=== PATIENT | male | born 2000 | race African-American/Black ===

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

== ENCOUNTER 2019-11-07 14:30 | Emergency (ER) | payer OTHER, SELFPAY ==
[2019-11-07] MEDS ORDERED: Ondansetron ODT 4 MG TAB ONE (16:02)
== END 2019-11-07 16:46 | disposition home or self-care (01) ==
LOC: ERS 14:30
DX: R11.2 Nausea with vomiting, unspecified (principal); R19.7 Diarrhea, unspecified; F98.8 Other specified behavioral and emotional disorders with onset usually occurring in childhood and adolescence; F17.210 Nicotine dependence, cigarettes, uncomplicated
CPT/HCPCS: 96372; 99283; J0500; Q0162

== ENCOUNTER 2019-12-11 16:32 | Inpatient (IN) | payer OTHER, SELFPAY ==
[~2019-12-11 16:32] MED LIST: Iopamidol-370 76% 500 ML 1 ML ONE
[2019-12-11] MEDS ORDERED: Ondansetron PF 4 MG/2 ML Vial ONE (16:51)
[2019-12-11 17:20] LABS: #Basophils 0.1 thou/uL (0.0-0.2); #Lymphocytes 1.6 thou/uL (1.20-3.40); #Monocytes 2.1 thou/uL (0.11-0.59); #Neutrophils 15.3 thou/uL (1.40-6.50); %Basophils 0.3 % (0.0-1.0); %Eosinophils 0.1 % (0.0-10.0); %Lymphocytes 8.2 % (28.0-48.0); %Monocytes 10.9 % (0.0-4.0); %Neutrophils 80.5 % (31.0-61.0); Hemoglobin 17.4 g/dL (14.0-18.0); Mean Corpuscular HGB CONC 33.3 g/dL (32.0-36.0); Mean Platelet Volume 9.8 fL (7.4-10.4); Platelet Count 204 thou/uL (130-400); RBC Distribution Width 11.3 % (11.5-14.5)
[2019-12-11 17:47] LABS: ALT (SGPT) 15 U/L (8-55); AST (SGOT) 20 U/L (5-34); Albumin 5.3 g/dL (3.5-5.0); Alkaline Phosphatase 61 U/L (50-130); Anion Gap 17 mmol/L (10-20); BUN (Urea Nitrogen) 46 mg/dL (8.9-20.6); Bilirubin, Total 2.6 mg/dL (0.2-1.2); Calc. Creatinine Clearance 0 mL/min (70-130); Carbon Dioxide 29 mmol/L (22-29); Chloride 78 mmol/L (98-107); Estimated GFR-MDRD 49; Globulin 3.3 g/dL (2.4-3.5); Glucose 131 mg/dL (70-105); Lipase 110 U/L (8-78); Protein, Total 8.6 g/dL (6.0-8.3); Sodium 121 mmol/L (136-145)
[2019-12-11 17:51] LABS: Potassium 2.9 mmol/L (3.5-5.1)
[2019-12-11] MEDS ORDERED: Potassium Chloride 20 MEQ TAB ONE (17:52)
[2019-12-11 18:42] LABS: Bacteria/HPF None Seen HPF (None Seen); Bilirubin Negative (Negative); Blood, Urine Negative (Negative); Clarity Clear (Clear); Glucose, Urine (Dipstick) Normal (Negative); Ketone, Urine Negative (Negative); Leukocyte Negative Leu/uL (Negative); Nitrite Negative (Negative); Protein, Urine (Dipstick) 50 mg/dL (Neg-Trace); RBC/HPF 0-3 HPF (0-3); Specific Gravity, Urine 1.028 (1.002-1.036); Squamous Epithelial 0-3 HPF (0-3); Urobilinogen Normal mg/dL (Less than 2); WBC/HPF 0-3 HPF (0-3)
--- NOTE | 2019-12-11 20:03 | CT ---
CT ABDOMEN AND PELVIS WITH IV CONTRAST: 12/11/19 INDICATIONS: Abdominal pain. Elevated lipase. FINDINGS: The lung bases are clear. Liver, spleen and pancreas unremarkable. No peripancreatic inflammatory change identified. Adrenal gl ands and kidneys unremarkable. Bowel loops appear normal caliber. Appendix cannot be delineated on th is exam. There are no intra-abdominal fat planes and lack of enteric contrast prohibits adequate iden tification of the appendix. There is no secondary evidence of appendicitis identified. No adenopathy or mass identified. IMPRESSION: No acute findings. POS: AGW
--- NOTE | 2019-12-11 20:50 | PDOC.FPRHP ---
- History of Present Illness Chief Complaint: nausea/vomiting History of Present Illness: 19yo male presented with nausea and vomiting for the past 1day. He had tried taking Zofran and Bentyl at home that he had been prescribed at a past ER visit for similar complaints. Also has mucle cramping, chills. Denies diarrhea. Currently he has completely improved and reports to be asymptomatic. He is s/p 2L NS and some zofran and bentyl. He has no complaints tat this time. Denies sick contacts, denies dietary changes. ED Course: 2L NS, KCl 40meq, Bentyl 20mg, Zofran 4mg - Allergies/Adverse Reactions Allergies Allergy/AdvReac Type Severity Reaction Status Date / Time No Known Drug Allergies Allergy Verified 12/11/19 22:56 - History PMHx: Denies PSHx: Tonsillectomy, right hand surgery FHx: Unremarkable Social: Denies alcohol, drugs. denies smoking - Review of Systems General: denies: fever/chills, fatigue Eyes: denies: eye pain, vision changes ENT: denies: nasal congestion, rhinorrhea Respiratory: denies: cough, congestion, shortness of breath Cardiovascular: denies: chest pain, palpitation Gastrointestinal: reports: nausea (resolved), vomiting (resolved). denies: diarrhea, constipation, abdominal pain Skin: denies: rashes, lesions Musculoskeletal: denies: pain, tenderness Neurological: denies: syncope, seizure Psychological: denies: anxiety, depression - Vital signs BP: 137/86, Pulse: 113, Resp: 18, Temp: 97.9 (Oral), Pain: 6, O2 sat: 96 on ( Room Air), Time: 12/11/2019 16:33. - Physical Exam Constitutional: NAD, awake, alert and oriented, well developed HEENT: EOMI, grossly normal vision, grossly normal hearing, other (lips are dry) Neck: supple, trachea midline Chest: no-tender to palpation Heart: RRR, normal S1/S2 Lungs: CTAB, no respiratory distress Abdomen: soft, non-tender Musculoskeletal: normal structure, normal tone Neurological: no focal deficit, normal sensation Skin: no rash/lesions -Skin: cap refil 2-3 seconds Heme/Lymphatic: no purpura, no petechia Psychiatric: normal mood and affect, good judgment and insight FMR H&P: Results - Labs Result Diagrams: 12/12/19 04:29 12/12/19 14:47 Lab results: WBC 19.0 thou/uL (4.8-10.8) H 12/11/19 17:10 Hgb 17.4 g/dL (14.0-18.0) 12/11/19 17:10 Hct 52.1 % (42.0-52.0) H 12/11/19 17:10 MCV 84.0 fL (78.0-98.0) 12/11/19 17:10 Plt Count 204 thou/uL (130-400) 12/11/19 17:10 Neutrophils % 80.5 % (31.0-61.0) H 12/11/19 17:10 Sodium 121 mmol/L (136-145) L 12/11/19 16:52 Potassium 2.9 mmol/L (3.5-5.1) L* 12/11/19 16:52 Chloride 78 mmol/L (98-107) L 12/11/19 16:52 Carbon Dioxide 29 mmol/L (22-29) 12/11/19 16:52 BUN 46 mg/dL (8.9-20.6) H 12/11/19 16:52 Creatinine 2.12 mg/dL (0.7-1.3) H 12/11/19 16:52 Glucose 131 mg/dL (70-105) H 12/11/19 16:52 Calcium 10.0 mg/dL (7.8-10.44) 12/11/19 16:52 Total Bilirubin 2.6 mg/dL (0.2-1.2) H 12/11/19 16:52 AST 20 U/L (5-34) 12/11/19 16:52 ALT 15 U/L (8-55) 12/11/19 16:52 Alkaline Phosphatase 61 U/L (50-130) 12/11/19 16:52 Serum Total Protein 8.6 g/dL (6.0-8.3) H 12/11/19 16:52 Albumin 5.3 g/dL (3.5-5.0) H 12/11/19 16:52 Lipase 110 U/L (8-78) H 12/11/19 16:52 Urine Ketones Negative mg/dL (Negative) 12/11/19 18:06 Urine Blood Negative (Negative) 12/11/19 18:06 Urine Nitrite Negative (Negative) 12/11/19 18:06 Ur Leukocyte Esterase Negative Scotty/uL (Negative) 12/11/19 18:06 Urine RBC 0-3 HPF (0-3) 12/11/19 18:06 Urine WBC 0-3 HPF (0-3) 12/11/19 18:06 Ur Squamous Epith Cells 0-3 HPF (0-3) 12/11/19 18:06 Urine Bacteria None Seen HPF (None Seen) 12/11/19 18:06 FMR H&P: A/P - Problem List (1) Hyponatremia Current Visit: Yes Status: Acute Code(s): E87.1 - HYPO-OSMOLALITY AND HYPONATREMIA (2) Hypovolemia Current Visit: Yes Status: Acute Code(s): E86.1 - HYPOVOLEMIA (3) Hypokalemia Current Visit: Yes Status: Acute Code(s): E87.6 - HYPOKALEMIA (4) Nausea & vomiting Current Visit: Yes Status: Acute Code(s): R11.2 - NAUSEA WITH VOMITING, UNSPECIFIED - Plan Hyponatremia likely 2/2 volume depletion from n/v A- Likely 2/2 nausea and vomiting. Sodium 121. s/p 2L in ED. P- Will start on mIVF and recheck BMP now -Ordered urine studies -Admit to tele due to hypokalemia -check CK to r/o rhabdo -UDS to check for hyperemesis canabis syndrome -Goal to increase sodium 6-8 points in next 24hrs Symptomatic hypokalemia 2/2 vomiting A- 2/2 above. 40meq PO in ED. P- Ordered 40meq IV and 40 PO as well -Continue to monitor Code Status: FULL DVT ppx: SCDs PCP: CC Discussed with Dr Castillo Addendum - Attending - Attending Attestation Case discussed with Dr. Browne. See note from 12/11
[2019-12-11] MEDS ORDERED: Lactated Ringer's 1,000 ML IV SCH (21:30)
[2019-12-11 22:25] LABS: Anion Gap 12 mmol/L (10-20); BUN (Urea Nitrogen) 35 mg/dL (8.9-20.6); Calc. Creatinine Clearance 0 mL/min (70-130); Calcium 8.6 mg/dL (7.8-10.44); Carbon Dioxide 29 mmol/L (22-29); Chloride 88 mmol/L (98-107); Estimated GFR-MDRD 63; Glucose 99 mg/dL (70-105); Potassium 3.4 mmol/L (3.5-5.1); Sodium 126 mmol/L (136-145)
[2019-12-11] MEDS ORDERED: Acetaminophen 325 MG TAB PO PRN (22:37)
[2019-12-11 22:47] VITALS: BMI 19.8
[2019-12-11 23:02] LABS: Amphetamine Not Detected (NotDetected); Barbiturates Screen Not Detected (NotDetected); Benzodiazepine Screen Not Detected (NotDetected); Cocaine Metabolite Screen Not Detected (NotDetected); Medtox Control Line Valid? VALID (VALID); Medtox Reader # READER 4; Methadone Not Detected (NotDetected); Methamphetamine Not Detected (NotDetected); Opiate Screen Not Detected (NotDetected); Oxycodone Screen Not Detected (NotDetected); Phencyclidine (PCP) Not Detected (NotDetected); THC/Cannabinoid Screen Detected (NotDetected); Tricyclic Screen Not Detected (NotDetected)
[2019-12-11] MEDS: Potassium Chloride 20 MEQ in Premix Bag 1 BAG IVPB SCH (23:35)
[2019-12-12] MEDS: Ondansetron PF 4 MG/2 ML Vial IVP PRN ×2 (00:07→10:29)
[2019-12-12] MEDS: Potassium Chloride 20 MEQ in Premix Bag 1 BAG IVPB SCH (00:19)
[2019-12-12 04:49] LABS: #Lymphocytes 2.2 thou/uL (1.20-3.40); #Monocytes 2.4 thou/uL (0.11-0.59); #Neutrophils 12.8 thou/uL (1.40-6.50); %Basophils 0.1 % (0.0-1.0); %Eosinophils 0.1 % (0.0-10.0); %Lymphocytes 12.4 % (28.0-48.0); %Monocytes 13.7 % (0.0-4.0); %Neutrophils 73.6 % (31.0-61.0); Hemoglobin 15.1 g/dL (14.0-18.0); Mean Corpuscular Hemoglobin 28.2 pg (25.0-35.0); Mean Corpuscular Volume 85.5 fL (78.0-98.0); Mean Platelet Volume 9.7 fL (7.4-10.4); Platelet Count 183 thou/uL (130-400); RBC Distribution Width 11.2 % (11.5-14.5); Red Blood Cell (RBC) Count 5.33 mill/uL (4.00-5.20); White Blood Cell (WBC) Count 17.4 thou/uL (4.8-10.8)
[2019-12-12 05:10] LABS: Anion Gap 12 mmol/L (10-20); BUN (Urea Nitrogen) 29 mg/dL (8.9-20.6); Calc. Creatinine Clearance 70 mL/min (70-130); Calcium 9.2 mg/dL (7.8-10.44); Carbon Dioxide 31 mmol/L (22-29); Chloride 91 mmol/L (98-107); Estimated GFR-MDRD 75; Glucose 100 mg/dL (70-105); Potassium 3.9 mmol/L (3.5-5.1); Sodium 130 mmol/L (136-145)
--- NOTE | 2019-12-12 05:45 | PDOC.FM ---
- Subjective Subjective: Pt resting comfortably at bedside. Pt having some nausea overnight and 2 episodes of emesis. States that he feels better than last night and would like to shower and try to eat/drink. Continues to be afebrile. - Objective Vital Signs & Weight: Vital Signs (12 hours) Temp Pulse Resp BP Pulse Ox 12/12/19 03:38 98.2 F 63 18 117/68 97 12/11/19 23:55 99 12/11/19 22:30 98.7 F 78 18 146/86 H 99 Weight Weight 60.963 kg Result Diagrams: 12/12/19 04:29 12/12/19 14:47 Phys Exam - Physical Examination Constitutional: NAD HEENT: PERRLA Respiratory: no wheezing Cardiovascular: RRR, no significant murmur, no rub Gastrointestinal: soft, non-tender, no distention, positive bowel sounds Musculoskeletal: no edema, pulses present Psychiatric: normal affect, A&O x 3 Dx/Plan - Plan Plan: 19 y/o M with no significant PMHx presents with nausea and vomiting with hypokalemia/natremia and MAEVE 2/2 hypovolemia. ##Hyponatremia likely 2/2 volume depletion from n/v A- Likely 2/2 nausea and vomiting. Sodium 121. s/p 2L in ED. P- started on mIVF--currently stopped. -Na = 121-->126-->130 -CK = 477 -UDS to check for hyperemesis canabis syndrome--positive for cannibinoids ##Symptomatic hypokalemia 2/2 vomiting A- 2/2 above. 40meq PO in ED. 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 will encourage PO intake, manage nausea with zofran. continue to monitor. check BMP. if he improves may d/c later today. Addendum - Attending - Attending Attestation Date/Time: 12/12/191913 I personally evaluated the patient and discussed the management with Dr. Eden. H&P repeated by me. I agree with the History, Examination, Assessment and Plan documented above with any addition or exceptions noted below. Hypovolemic hyponatremia- s/p IV replacement. Na improved. n/v- most likely from cyclical vomiting from THC. Antiemetics and po intake. hypokalemia-replace MAEVE-improved with fluids Home once tolerating fluids and trend na level
[2019-12-12 12:46] LABS: SARS-CoV-2 MS2 Positive; SARS-CoV-2 N Gene Negative; SARS-CoV-2 S Gene Negative; SARS-CoV-2 by NAA Not Detected (NotDetected); SARS-CoV-2 orf1ab Negative
[2019-12-12 15:48] LABS: Anion Gap 10 mmol/L (10-20); BUN (Urea Nitrogen) 23 mg/dL (8.9-20.6); Calc. Creatinine Clearance 86 mL/min (70-130); Calcium 9.4 mg/dL (7.8-10.44); Carbon Dioxide 35 mmol/L (22-29); Chloride 89 mmol/L (98-107); Estimated GFR-MDRD Greater than 90; Glucose 82 mg/dL (70-105); Potassium 3.7 mmol/L (3.5-5.1); Sodium 130 mmol/L (136-145)
[2019-12-12] MEDS: Ondansetron ODT 4 MG TAB PO PRN ×2 (15:54→22:49)
[2019-12-12] MEDS: Melatonin 3 MG TAB PO PRN (22:46)
[2019-12-13 05:26] LABS: Eosinophils 1 % (0-10); Hemoglobin 14.8 g/dL (14.0-18.0); Lymphocytes 12 % (28-48); MDiff Complete? YES; Mean Corpuscular HGB CONC 34.9 g/dL (32.0-36.0); Mean Corpuscular Volume 86.2 fL (78.0-98.0); Mean Platelet Volume 9.6 fL (7.4-10.4); Monocytes 11 % (0-4); Neutrophil 76 % (31-61); Platelet Count 154 thou/uL (130-400); Platelet Morphology Comment Appears Adequate; RBC Morphology Normal; Red Blood Cell (RBC) Count 4.91 mill/uL (4.00-5.20); White Blood Cell (WBC) Count 12.6 thou/uL (4.8-10.8)
[2019-12-13 05:31] LABS: Anion Gap 11 mmol/L (10-20); BUN (Urea Nitrogen) 21 mg/dL (8.9-20.6); Calc. Creatinine Clearance 94 mL/min (70-130); Carbon Dioxide 33 mmol/L (22-29); Chloride 91 mmol/L (98-107); Estimated GFR-MDRD Greater than 90; Glucose 86 mg/dL (70-105); Sodium 132 mmol/L (136-145)
--- NOTE | 2019-12-13 05:55 | PDOC.FM ---
- Subjective Subjective: pt resting comfortably in bed this AM. no c/o of nausea at this moment. stated that nausea came back after lunch yesterday and with medication he felt better. no emesis episodes last night or this AM. was able to keep down full liquid diet yesterday. - Objective Vital Signs & Weight: Vital Signs (12 hours) Temp Pulse Resp BP Pulse Ox 12/13/19 04:00 98.4 F 61 17 120/56 L 97 12/12/19 19:00 99.1 F 71 18 123/73 99 12/12/19 18:51 99 Weight Admit Weight 60.781 kg Weight 60.917 kg I&O: 12/11/19 12/12/19 12/13/19 06:59 06:59 06:59 Intake Total 1250 1700 Output Total 300 750 Balance 950 950 Result Diagrams: 12/13/19 04:47 12/13/19 04:47 Phys Exam - Physical Examination Constitutional: NAD HEENT: PERRLA Respiratory: no wheezing, no rales, no rhonchi Cardiovascular: RRR, no significant murmur, no rub Gastrointestinal: soft, non-tender, no distention Psychiatric: normal affect, A&O x 3 Dx/Plan - Plan Plan: 19 y/o M with no significant PMHx presents with nausea and vomiting with hypokalemia/natremia and MAEVE 2/2 hypovolemia. ##Hyponatremia likely 2/2 volume depletion from n/v A- Likely 2/2 nausea and vomiting. Sodium 121. s/p 2L in ED. P- started on mIVF--currently stopped. 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 manage nausea with antiemetics. will see how patient does with PO intake today. Addendum - Attending - Attending Attestation Date/Time: 12/13/19 [id number] I personally evaluated the patient and discussed the management with Dr. Eden I agree with the History, Examination, Assessment and Plan documented above with any addition or exceptions noted below. Hypovolemic hyponatremia- improved with hydration n/v- improved. No emesis since yesterday. Hypokalemia- replace Stable for d/c home
[2019-12-13] MEDS ORDERED: Potassium Chloride 20 MEQ TAB PO SCH (06:00)
--- NOTE | 2019-12-13 07:24 | CON ---
DATE OF CONSULTATION: 12/12/2019 CONSULTING PHYSICIAN: Dr. Browne. REASON FOR CONSULTATION: Acute kidney injury. REASON FOR ADMISSION: Nausea and vomiting. HISTORY OF PRESENT ILLNESS: This is a 19-year-old male with no significant past medical history, came to the hospital with nausea and vomiting, has been evaluated. He was found to have elevated creatinine with hyponatremia and hypokalemia. His potassium was 2.9, sodium of 121, BUN 46, creatinine of 2.12. Nephrology was consulted. The patient improved with creatinine of 1.45 and sodium of 130 when I saw the patient. The patient was still having nausea. PAST MEDICAL HISTORY: No history of any significant medical disease. PAST SURGICAL HISTORY: 1. Tonsillectomy. 2. Right hand surgery. HOME MEDICATION: None. ALLERGIES: NO KNOWN DRUG ALLERGIES. SOCIAL HISTORY: No smoking, alcohol, or illicit drugs. FAMILY HISTORY: No history of kidney disease. REVIEW OF SYSTEMS: The following complete review of systems was negative, unless otherwise mentioned in the HPI or below: CONSTITUTIONAL: Weight loss or gain, ability to conduct usual activities. SKIN: Rash, itching. EYES: Double vision, pain. ENT/MOUTH: Nose bleeding, neck stiffness, pain, tenderness. CARDIOVASCULAR: Palpitations, dyspnea on exertion, orthopnea. RESPIRATORY: Shortness of breath, wheezing, cough, hemoptysis, fever or night sweats. GASTROINTESTINAL: Poor appetite, abdominal pain, heartburn, nausea, vomiting, constipation, or diarrhea. GENITOURINARY: Urgency, frequency, dysuria, nocturia. MUSCULOSKELETAL: Pain, swelling. NEUROLOGIC/PSYCHIATRIC: Anxiety, depression. ALLERGY/IMMUNOLOGIC: Skin rash, bleeding tendency. PHYSICAL EXAMINATION: GENERAL: This is a thin-built male, in no apparent distress. VITAL SIGNS: Temperature 98.8, pulse 61, respiratory rate 18, and blood pressure 133/70. HEENT: Atraumatic, normocephalic. Oral mucosa moist. NECK: Supple. CV: S1 and S2. Rate and rhythm regular. RESPIRATORY: Clear. GASTROINTESTINAL: Abdomen is soft. MUSCULOSKELETAL: . DERMATOLOGIC: No skin rash. NEUROLOGIC: Alert and awake. PSYCHIATRIC: Normal mood and affect. LABORATORY DATA: Hemoglobin is 15.1. Potassium is 3.9, BUN is 39, creatinine is 1.4, sodium 130. Urine screen; urine sodium is less than 20, urine osmolality 836. COVID negative. Urine positive for cannabinoids. ASSESSMENT AND PLAN: 1. Acute kidney injury, most likely volume depletion. Creatinine getting better to 1.4 from 2.1. Continue hydration. 2. Hyponatremia with adequate correction. 3. Hypokalemia, better. 4. Alkalosis. 5. Substance abuse. 6. Nausea, vomiting. 7. Hemoconcentration. Labs are much better. Avoid nephrotoxins. Continue hydration as tolerated. We will follow. Job ID: [id number]
[2019-12-13] MEDS: Ondansetron ODT 4 MG TAB PO PRN (08:13)
--- NOTE | 2019-12-13 12:31 | PRG ---
DATE OF SERVICE: 12/13/2019 SUBJECTIVE: Patient was seen and examined at bedside and overnight events noted. Patient denies any shortness of breath or chest pain or palpitation. No history of nausea or vomiting or diarrhea or fever or chills or cramps. OBJECTIVE: GENERAL: This is a well-built male, in no apparent distress. VITAL SIGNS: Temperature 98.8. Heart rate 61. Respiratory rate 16. Blood pressure 122/60. HEENT: Atraumatic, normocephalic. Oral mucosa is moist. NECK: Supple. CARDIOVASCULAR: S1, S2 heard. Rate and rhythm regular. RESPIRATORY: Clear to auscultation. GASTROINTESTINAL: Abdomen is soft. MUSCULOSKELETAL: No tenderness. No edema. DERMATOLOGIC: No skin rash. NEUROLOGIC: Alert and awake and oriented x3. No focal neurologic deficits. Moving all the extremities. PSYCHIATRIC: Mood and affect normal. LABORATORY DATA: Potassium 3.0, BUN is 21, and creatinine is 1.8. ASSESSMENT AND PLAN: 1. Acute kidney injury, most likely volume depletion. Creatinine is much better. 2. Hypokalemia, replace. 3. Hyponatremia, better. 4. Alkalosis secondary to vomiting. 5. Nausea, vomiting. Labs are better. Continue hydration. Job ID: [id number]
[2019-12-13] MEDS ORDERED: Promethazine HCl 25 MG/ML VIAL IM/IV PRN (13:14)
[2019-12-13] MEDS ORDERED: Promethazine HCl 25 MG in Sodium Chloride 0.9% 50 ML IVPB PRN (13:21)
[2019-12-13] MEDS: Promethazine 25 MG TAB PO PRN ×2 (13:36→21:04)
[2019-12-13 16:51] LABS: Anion Gap 15 mmol/L (10-20); BUN (Urea Nitrogen) 20 mg/dL (8.9-20.6); Calc. Creatinine Clearance 91 mL/min (70-130); Calcium 9.3 mg/dL (7.8-10.44); Carbon Dioxide 29 mmol/L (22-29); Chloride 92 mmol/L (98-107); Estimated GFR-MDRD Greater than 90; Glucose 78 mg/dL (70-105); Sodium 132 mmol/L (136-145)
[2019-12-13] MEDS ORDERED: Meclizine HCl 12.5 MG TAB PO PRN (20:02)
[2019-12-13] MEDS ORDERED: hydrOXYzine 25 MG TAB PO PRN (20:03)
[2019-12-13] MEDS: Melatonin 3 MG TAB PO PRN (23:34)
[2019-12-14 04:00] LABS: #Eosinphils 0.1 thou/uL (0.0-0.7); #Lymphocytes 3.6 thou/uL (1.20-3.40); #Monocytes 1.8 thou/uL (0.11-0.59); %Basophils 0.4 % (0.0-1.0); %Eosinophils 0.8 % (0.0-10.0); %Lymphocytes 28.8 % (28.0-48.0); %Neutrophils 56.1 % (31.0-61.0); Hemoglobin 15.1 g/dL (14.0-18.0); Mean Corpuscular HGB CONC 32.8 g/dL (32.0-36.0); Mean Corpuscular Hemoglobin 28.6 pg (25.0-35.0); Mean Corpuscular Volume 87.3 fL (78.0-98.0); Mean Platelet Volume 9.6 fL (7.4-10.4); Platelet Count 172 thou/uL (130-400); Red Blood Cell (RBC) Count 5.27 mill/uL (4.00-5.20); White Blood Cell (WBC) Count 12.5 thou/uL (4.8-10.8)
[2019-12-14 04:23] LABS: Anion Gap 13 mmol/L (10-20); BUN (Urea Nitrogen) 19 mg/dL (8.9-20.6); Calc. Creatinine Clearance 81 mL/min (70-130); Calcium 9.1 mg/dL (7.8-10.44); Carbon Dioxide 28 mmol/L (22-29); Chloride 95 mmol/L (98-107); Estimated GFR-MDRD 88; Glucose 88 mg/dL (70-105); Potassium 3.2 mmol/L (3.5-5.1); Sodium 133 mmol/L (136-145)
--- NOTE | 2019-12-14 07:00 | PDOC.FM ---
- Subjective Subjective: Patient reports resolution of nausea overnight. Last vomiting episode was 6pm yesterday. Last BM was prior to admission. The patient says he is ready to try eating today. - Objective MAR Reviewed: Yes Vital Signs & Weight: Vital Signs (12 hours) Temp Pulse Resp BP BP Pulse Ox 12/14/19 03:17 99.1 F 60 16 118/61 99 12/13/19 23:53 98.3 F 12/13/19 20:00 97 12/13/19 19:45 100 F H 78 18 121/71 97 Weight Admit Weight 60.781 kg Weight 61.689 kg I&O: 12/12/19 12/13/19 12/14/19 06:59 06:59 06:59 Intake Total 1250 1700 240 Output Total 300 750 725 Balance 950 950 -485 Result Diagrams: 12/14/19 03:31 12/14/19 03:31 Phys Exam - Physical Examination Constitutional: NAD HEENT: moist MMs, sclera anicteric Neck: supple, full ROM Respiratory: no wheezing, clear to auscultation bilateral Cardiovascular: RRR, no significant murmur Gastrointestinal: soft, non-tender, no distention, positive bowel sounds Musculoskeletal: no edema, pulses present Neurological: non-focal, moves all 4 limbs Lymphatic: no nodes Psychiatric: normal affect, A&O x 3 Skin: no rash, normal turgor Dx/Plan - Plan Plan: 1. Hypovolemic hyponatremia 2/2 intractable nausea and vomiting Most recent marijuana use reported 1 week ago. UDS + cannibinoids. Nausea/ vomiting likely due to hyperemesis cannabis syndrome. Na initially 121, now 133. -Encourage hydration through PO diet. Advance as tolerated. -Daily BMP 2. Hypokalemia 2/2 vomiting K initially 2.9. Most recent 3.2. -Replete as needed -Daily BMP 3. MAEVE, resolved Likely due to hypovolemia. Creatinine initially 2.1. Most recent was 1.27. UA positive for proteins and hyaline casts. Nephrology following. -Encourage hydration -F/u nephro recs Code Status: FULL DVT ppx: SCDs PCP: CC Dispo: Discharge home pending symptom improvement.
[2019-12-14] MEDS ORDERED: Potassium Chloride 20 MEQ TAB PO SCH (09:30)
[2019-12-14 10:25] LABS: Magnesium 2.7 mg/dL (1.7-2.2); Phosphorus 3.2 mg/dL (2.3-4.7)
--- NOTE | 2019-12-14 12:54 | PRG ---
DATE OF SERVICE: 12/14/2019 SUBJECTIVE: A 19-year-old gentleman being seen for acute kidney injury. The patient denies any nausea, vomiting, or chest pain. PHYSICAL EXAMINATION: GENERAL: The patient is awake and alert. VITAL SIGNS: Afebrile, pulse 75, breathing at 16, blood pressure 121/80. HEENT: Head normocephalic and atraumatic. Eyes intact, no ulcers. Nose intact, no ulcers. Ears intact, no ulcers. NECK: Supple. No JVD. CHEST: Symmetrical and clear. CARDIOVASCULAR: Shows S1 and S2, no rub, no murmur. GASTROINTESTINAL: Abdomen is soft, bowel sounds positive. EXTREMITIES: Show no edema or ulcers. SKIN: Shows no rash or petechiae. MUSCULOSKELETAL: Shows no joint swelling or stiffness. GENITOURINARY: Shows no Ford or CVA tenderness. NEUROLOGIC: Motor intact. Cranial nerves intact. LABORATORY DATA: Shows hemoglobin 15. Creatinine 1.2. ASSESSMENT AND PLAN: 1. Acute kidney injury with chronic kidney disease, stage 2, stable. 2. Hypertension, stable. 3. Hypokalemia. Recommend high potassium diet. I will sign off on this patient. Please reconsult as needed. Job ID: [id number]
--- NOTE | 2019-12-14 13:13 | PRG ---
DATE OF SERVICE: 12/14/2019 ADDENDUM: This is an addendum to the note of Dr. Claudette Cason. Mr. Luevano is a pleasant 19-year-old black man, who was admitted with hypovolemic hyponatremia secondary to intractable nausea and vomiting. The intractable nausea and vomiting resulted from his use of marijuana as well as a possible viral gastroenteritis. In the event, his serum sodium has been corrected. He looks and feels much better and will be discharged later today. Job ID: [id number]
[2019-12-14 16:38] VITALS: BP 130/83; TEMP 97.8
--- NOTE | 2019-12-16 04:56 | DIS ---
DATE OF ADMISSION: 12/11/2019 DATE OF DISCHARGE: 12/14/2019 RESIDENT: Claudette Cason MD ADMITTING ATTENDING: Eliz Castillo MD DISCHARGE ATTENDING: Ozzie Carver MD CONSULTS: Siva Arana MD (nephrology) and Anurag Jenkins MD (nephrology ) PROCEDURES: None. PRIMARY DIAGNOSES: Hypovolemic hyponatremia secondary to intractable nausea and vomiting. SECONDARY DIAGNOSES: Hypokalemia secondary to vomiting, acute kidney injury now resolved, history of marijuana use. DISCHARGE MEDICATIONS: Zofran 4 mg p.o. q.6 h. p.r.n. DISCONTINUED MEDICATIONS: None. HISTORY OF PRESENT ILLNESS: The patient presented to the ED with intractable nausea and vomiting. He reported consuming a [employer] cheesesteak just prior to symptom onset. He is a frequent marijuana user with last reported use 1 week ago. Urine drug screen was positive for cannabinoids in the ED. Patient started on maintenance IV fluids with resulting improvement of Na. K repleated as needed. MAEVE on admission likely due to hypovolemia. Creatinine was initially 2.1 but improved after fluids and PO intake. Nephrology was consulted and encouraged hydration. The patient's diet was advanced and tolerated well. He did not experience a vomiting episode within 24 hours of discharge. His vitals remained stable throughout admission. The patient was deemed stable for discharge on 12/14/2019. He was encouraged to stop his chronic marijuana use as this is likely the cause of his intractable nausea and vomiting. He will establish care and follow up with a new PCP within 1 week. DISPOSITION: Stable. DISCHARGE INSTRUCTION: Location, home. Diet, regular. Activity, as tolerated. Establish care with PCP within 1 week. Job ID: [id number] [facility]
== END 2019-12-14 16:57 | disposition home or self-care (01) | DRG 683 ==
LOC: ERS 16:32 → 2NO 20:57
PROVIDERS: ADMIT Family Medicine; ATTEND Family Medicine
DX: N17.9 Acute kidney failure, unspecified (principal); E87.1 Hypo-osmolality and hyponatremia; E87.3 Alkalosis; E86.1 Hypovolemia; E87.6 Hypokalemia; E86.9 Volume depletion, unspecified; F90.9 Attention-deficit hyperactivity disorder, unspecified type; F17.210 Nicotine dependence, cigarettes, uncomplicated; F19.10 Other psychoactive substance abuse, uncomplicated
CPT/HCPCS: 36415; 74177; 80048; 80053; 80306; 81003; 81015; 82550; 83690; 83735; 83935; 84100; 84300; 85025; 87635; 93005; 96361; 96372; 96374; J0500; J2405; J2550; J3480; Q0162; Q0169; Q9967; U0003

== ENCOUNTER 2020-03-02 16:00 | Emergency (ER) | payer SELFPAY ==
[2020-03-02 18:37] LABS: #Lymphocytes 0.9 thou/uL (1.20-3.40); #Neutrophils 17.9 thou/uL (1.40-6.50); %Basophils 0.1 % (0.0-1.0); %Eosinophils 0.1 % (0.0-10.0); %Lymphocytes 4.3 % (28.0-48.0); %Monocytes 5.2 % (0.0-4.0); %Neutrophils 90.3 % (31.0-61.0); Hemoglobin 16.1 g/dL (14.0-18.0); Mean Corpuscular HGB CONC 33.3 g/dL (32.0-36.0); Mean Corpuscular Hemoglobin 29.6 pg (25.0-35.0); Mean Corpuscular Volume 89.1 fL (78.0-98.0); Mean Platelet Volume 9.3 fL (7.4-10.4); Platelet Count 263 thou/uL (130-400); RBC Distribution Width 12.1 % (11.5-14.5); Red Blood Cell (RBC) Count 5.43 mill/uL (4.00-5.20); White Blood Cell (WBC) Count 19.9 thou/uL (4.8-10.8)
[2020-03-02 19:02] LABS: ALT (SGPT) 19 U/L (8-55); AST (SGOT) 17 U/L (5-34); Albumin 5.7 g/dL (3.5-5.0); Alkaline Phosphatase 81 U/L (50-130); Anion Gap 23 mmol/L (10-20); BUN (Urea Nitrogen) 24 mg/dL (8.9-20.6); Bilirubin, Total 1.1 mg/dL (0.2-1.2); CK (CPK) 76 U/L (30-200); Calc. Creatinine Clearance 0 mL/min (70-130); Calcium 9.9 mg/dL (7.8-10.44); Carbon Dioxide 23 mmol/L (22-29); Chloride 100 mmol/L (98-107); Estimated GFR-MDRD 62; Globulin 3.9 g/dL (2.4-3.5); Glucose 123 mg/dL (70-105); Lipase 8 U/L (8-78); Potassium 4.3 mmol/L (3.5-5.1); Protein, Total 9.6 g/dL (6.0-8.3); Sodium 142 mmol/L (136-145)
[2020-03-02] MEDS ORDERED: Ondansetron PF 4 MG/2 ML Vial ONE (19:15)
[2020-03-02 19:32] LABS: Bacteria/HPF None Seen HPF (None Seen); Bilirubin Negative (Negative); Blood, Urine Trace (Negative); Clarity Turbid (Clear); Glucose, Urine (Dipstick) 70 mg/dL (Negative); Ketone, Urine 10 mg/dL (Negative); Leukocyte Negative Leu/uL (Negative); Nitrite Negative (Negative); Protein, Urine (Dipstick) 300 mg/dL (Neg-Trace); RBC/HPF 0-3 HPF (0-3); Specific Gravity, Urine 1.034 (1.002-1.036); Squamous Epithelial 0-3 HPF (0-3); Transitional Epithelial 0-3 HPF (None Seen); Urobilinogen Normal mg/dL (Less than 2); pH, Urine 5.5 (5.0-9.0)
--- NOTE | 2020-03-02 21:38 | CT ---
CT ABDOMEN AND PELVIS PERFORMED WITH INTRAVENOUS CONTRAST ENHANCEMENT: 03/02/20 HISTORY: Abdominal pain. COMPARISON: A 12/11/19 exam. The lung bases are clear of infiltrative process. The liver, spleen, pancreas and gallbladder regions all appear unremarkable. Right and left adrenal gland and right and left kidneys are normal in size. No obstruction. No renal calculi seen. No significant periaortic or any definite mesenteric adenopathy. There is a lack of int ra-abdominal fat. CT OF PELVIS PERFORMED WITH CONTRAST ENHANCEMENT: No adenopathy, mass or free fluid. It is difficult to definitively identify an appendix but I see no inflammatory change that would suggest appendicitis. No significant bony findings. IMPRESSION: No acute findings of the abdomen or pelvis. POS: LELE
[2020-03-02 22:22] LABS: Lactic Acid 2.1 mmol/L (0.5-2.2)
[2020-03-02 23:27] LABS: Anion Gap 14 mmol/L (10-20); BUN (Urea Nitrogen) 23 mg/dL (8.9-20.6); Calc. Creatinine Clearance 0 mL/min (70-130); Calcium 8.1 mg/dL (7.8-10.44); Carbon Dioxide 25 mmol/L (22-29); Chloride 103 mmol/L (98-107); Estimated GFR-MDRD 76; Glucose 113 mg/dL (70-105); Potassium 4.4 mmol/L (3.5-5.1); Sodium 138 mmol/L (136-145)
[2020-03-04 10:19] LABS: Base Excess-Venous -0.3 mmol/L (-2.0 to 3.0); Bicarbonate (HCO3v) 23.1 mmol/L (22.0-28.0); CO2 Tension (PvCO2) 33.5 mmHg (40.0-50.0); Calcium, Ionized 0.91 mmol/L (1.15-1.33); Chloride 104 mmol/L (98-107); Hemoglobin - Calc 14.4 g/dL (14.0-18.0); Potassium 4.3 mmol/L (3.5-5.1); Sodium 139 mmol/L (138-145); T. Carbon Dioxide 24.2 mmol/L (22.0-28.0); vO2 Saturation-calc 57.8 % (60.0-85.0)
== END 2020-03-02 23:42 | disposition home or self-care (01) ==
LOC: ERS 16:00
DX: E86.0 Dehydration (principal); R11.2 Nausea with vomiting, unspecified; F90.9 Attention-deficit hyperactivity disorder, unspecified type; F17.210 Nicotine dependence, cigarettes, uncomplicated
CPT/HCPCS: 36415; 74177; 80053; 81003; 81015; 82330; 82435; 82550; 82803; 83605; 83690; 84132; 84295; 85014; 85025; 96361; 96374; J2405; Q9967

== ENCOUNTER 2020-03-23 21:16 | Observation (INO) | payer SELFPAY ==
[2020-03-23] MEDS ORDERED: Ondansetron PF 4 MG/2 ML Vial ONE ×2 (21:24→22:51)
[2020-03-23 22:03] LABS: Hemoglobin 15.8 g/dL (14.0-18.0); Mean Corpuscular HGB CONC 34.3 g/dL (32.0-36.0); Mean Corpuscular Hemoglobin 30.3 pg (27.0-31.0); Mean Corpuscular Volume 88.2 fL (78.0-98.0); Platelet Count 228 thou/uL (130-400); RBC Distribution Width 11.7 % (11.5-14.5); White Blood Cell (WBC) Count 22.2 thou/uL (4.8-10.8)
[2020-03-23 22:05] LABS: Bilirubin Moderate (Negative); Blood, Urine Small (Negative); Glucose, Urine (Dipstick) Negative (Negative); Ketone, Urine Trace mg/dL (Negative); Leukocyte Negative (Negative); Nitrite Negative (Negative); Protein, Urine (Dipstick) 100 mg/dL (Neg-Trace); Urobilinogen 0.2 mg/dL (Less than 2)
[2020-03-23 22:08] LABS: Clarity Hazy (Clear)
[2020-03-23 22:09] LABS: Specific Gravity, Urine 1.027 (1.002-1.036)
[2020-03-23 22:11] LABS: Squamous Epithelial 0-3 HPF (0-3); WBC/HPF 0-3 HPF (0-3)
[2020-03-23 22:12] LABS: Bacteria/HPF 2+ HPF (None Seen); Mucous/LPF 1+ LPF (<2+); Renal Epithelial 0-3 HPF (None Seen)
[2020-03-23 22:19] LABS: ALT (SGPT) 29 U/L (8-55); AST (SGOT) 43 U/L (5-34); Albumin 5.7 g/dL (3.5-5.0); Alkaline Phosphatase 79 U/L (40-110); Anion Gap 29 mmol/L (10-20); BUN (Urea Nitrogen) 22 mg/dL (8.9-20.6); Bilirubin, Total 1.5 mg/dL (0.2-1.2); Calc. Creatinine Clearance 0 mL/min (70-130); Calcium 10.8 mg/dL (7.8-10.44); Carbon Dioxide 19 mmol/L (22-29); Chloride 97 mmol/L (98-107); Estimated GFR-MDRD 63; Globulin 4.1 g/dL (2.4-3.5); Glucose 119 mg/dL (70-105); Lymphocytes 6 % (21-51); MDiff Complete? YES; Monocytes 9 % (0-10); Neutrophil 85 % (42-75); Platelet Morphology Comment Appears Adequate; Potassium 4.3 mmol/L (3.5-5.1); Protein, Total 9.8 g/dL (6.0-8.3); RBC Morphology Normal; Sodium 141 mmol/L (136-145)
[2020-03-23] MEDS ORDERED: diphenhydrAMINE 50 MG/ML VIAL ONE (23:02)
--- NOTE | 2020-03-23 23:17 | RAD ---
EXAM: CHEST ONE VIEW HISTORY: Diffuse abdominal pain, vomiting, and diarrhea. COMPARISON: None FINDINGS: The cardiac silhouette and pulmonary vasculature are within normal limits. Lungs are hyperexpanded an d clear. The osseous structures are intact. IMPRESSION: No acute cardiopulmonary process.
[2020-03-24 00:18] LABS: #Monocytes 0.5 thou/uL (0.11-0.59); #Neutrophils 14.9 thou/uL (1.40-6.50); %Basophils 0.2 % (0.0-1.0); %Eosinophils 0.1 % (0.0-10.0); %Lymphocytes 5.9 % (21.0-51.0); %Monocytes 3.1 % (0.0-10.0); %Neutrophils 90.7 % (42.0-75.0); Mean Corpuscular HGB CONC 33.6 g/dL (32.0-36.0); Mean Corpuscular Hemoglobin 29.8 pg (27.0-31.0); Mean Corpuscular Volume 88.7 fL (78.0-98.0); Mean Platelet Volume 8.7 fL (7.4-10.4); Platelet Count 193 thou/uL (130-400); RBC Distribution Width 11.6 % (11.5-14.5); Red Blood Cell (RBC) Count 4.36 mill/uL (4.70-6.10); White Blood Cell (WBC) Count 16.4 thou/uL (4.8-10.8)
[2020-03-24] MEDS ORDERED: cefTRIAXone\\ROCEPHIN 2 GM VIAL ONE (00:30)
[2020-03-24 00:38] LABS: ALT (SGPT) 23 U/L (8-55); AST (SGOT) 29 U/L (5-34); Albumin 4.4 g/dL (3.5-5.0); Alkaline Phosphatase 60 U/L (40-110); Anion Gap 20 mmol/L (10-20); BUN (Urea Nitrogen) 22 mg/dL (8.9-20.6); Bilirubin, Total 1.1 mg/dL (0.2-1.2); Calc. Creatinine Clearance 0 mL/min (70-130); Calcium 8.7 mg/dL (7.8-10.44); Carbon Dioxide 18 mmol/L (22-29); Chloride 105 mmol/L (98-107); Estimated GFR-MDRD 88; Globulin 2.9 g/dL (2.4-3.5); Glucose 98 mg/dL (70-105); Lipase 7 U/L (8-78); Potassium 4.3 mmol/L (3.5-5.1); Protein, Total 7.3 g/dL (6.0-8.3); Sodium 139 mmol/L (136-145)
[2020-03-24] MEDS ORDERED: Ondansetron ODT 4 MG TAB PO PRN (07:48)
[2020-03-24] MEDS ORDERED: Ondansetron PF 4 MG/2 ML Vial IVP PRN (07:48)
[2020-03-24] MEDS ORDERED: Acetaminophen 650 MG Suppository PR PRN (07:48)
[2020-03-24] MEDS ORDERED: Acetaminophen 325 MG TAB PO PRN (07:48)
[2020-03-24] MEDS ORDERED: Sodium Chloride 0.9% 1,000 ML IV SCH (08:00)
[2020-03-24] MEDS ORDERED: Famotidine 20 MG TAB PO SCH (09:00)
--- NOTE | 2020-03-24 10:23 | PDOC.HHP ---
Hospitalist HPI - History of Present Illness Intractable n/v History of Present Illness: ADMISSION DATE: 03/24/2020 TIME OF ASSESSMENT: 0800 PRIMARY CARE PHYSICIAN: None CHIEF COMPLAINT: Persistent nausea vomiting HPI: This is a 20-year-old gentleman who was admitted to the hospital after presenting to the ER early this morning with complaints of persistent nausea vomiting. He states that started around 7 AM and reports having generalized abdominal soreness due to the persistent vomiting and dry heaving. He is completely pain-free at present. States he has been told in the past that this was related to cannabis use but reports the last time he smoked marijuana was 2 months ago. Patient states he has had recurrent episodes like this at least once a month for the last several months. Has not sought work-up with his primary care physician. Usually comes into the emergency department and states he received IV fluids and eventually his symptoms resolved. Denies noting any hematemesis. Not had any changes with his stools. No diarrhea constipation bright red blood per rectum or melena. Denies any fevers chills or sweats. States he did have a night of heavy drinking yesterday until 3 AM this morning and does not recall how much he drank. Denies any daily alcohol use/abuse. Denies any drug use. Patient presented with similar symptoms last month on 03/02/2020 at which time he had CT imaging of the abdomen and pelvis which showed no acute findings. He has required admission in the past, last time being in November 2019 at which time nephrology was consulted due to severe MAEVE. Renal function improved at that time and he had CT imaging done during that admission as well which again showed no acute findings. At present he is feeling significantly better without complaints. Abdominal pain has completely resolved and he has not had any vomiting since arriving to the floor. States vomiting is usually triggered by attempting to drink fluids. Denies any drastic changes in his weight. No headaches dizziness or vision changes. All other review systems apart from those mentioned above in HPI are negative ED COURSE: EKG showed normal sinus rhythm, heart rate 60. Patient started on IV antibiotics with Rocephin due to elevated white cell count and lactic acidosis. Also given 2 L of normal saline, Zofran 4 mg IV x2 and 50 mg of IV Benadryl. PAST MEDICAL HISTORY: ADHD PAST SURGICAL HISTORY: Tonsillectomy Bilateral tympanostomy tube placement SOCIAL HISTORY: Denies any cannabis use for the last 2 months. Reports heavy drinking yesterday evening but denies any daily alcohol or heavy alcohol use. No other drug use. No tobacco use. FAMILY HISTORY: Unknown. ALLERGIES: No known drug allergies CURRENT MEDICATIONS: None. Hospitalist ROS - Medication Medications: Active Medications Generic Name Dose Route Start Last Admin Trade Name Mimi PRN Reason Stop Dose Admin Famotidine 20 mg 03/24/20 09:00 03/24/20 08:37 Famotidine 20 Mg Tab PO 20 mg BID JASE Administration Sodium Chloride 1,000 mls @ 100 mls/hr 03/24/20 08:00 03/24/20 08:38 Normal Saline 0.9% IV 1,000 mls .Q10H JASE Administration - Exam General Appearance: NAD, awake alert Eye: PERRL, anicteric sclera Neck: supple, no lymphadenopathy Heart: RRR, normal peripheral pulses Respiratory: CTAB, normal chest expansion Gastrointestinal: soft, non-tender, non-distended, normal bowel sounds Extremities: no edema Skin: normal turgor, no lesions, no rashes Neurological: cranial nerve grossly intact, normal sensation to touch, no weakness Musculoskeletal: normal tone, normal strength, no muscle wasting Psychiatric: normal affect, normal behavior, A&O x 3 Hospitalist Results - Labs Result Diagrams: 03/24/20 00:06 03/24/20 00:06 Lab results: WBC 16.4 thou/uL (4.8-10.8) H 03/24/20 00:06 Hgb 13.0 g/dL (14.0-18.0) L 03/24/20 00:06 Hct 38.6 % (42.0-52.0) L 03/24/20 00:06 MCV 88.7 fL (78.0-98.0) 03/24/20 00:06 Plt Count 193 thou/uL (130-400) 03/24/20 00:06 Neutrophils % 90.7 % (42.0-75.0) H 03/24/20 00:06 Sodium 139 mmol/L (136-145) 03/24/20 00:06 Potassium 4.3 mmol/L (3.5-5.1) 03/24/20 00:06 Chloride 105 mmol/L (98-107) 03/24/20 00:06 Carbon Dioxide 18 mmol/L (22-29) L 03/24/20 00:06 BUN 22 mg/dL (8.9-20.6) H 03/24/20 00:06 Creatinine 1.26 mg/dL (0.7-1.3) 03/24/20 00:06 Glucose 98 mg/dL (70-105) 03/24/20 00:06 Lactic Acid 1.3 mmol/L (0.5-2.2) 03/24/20 00:06 Calcium 8.7 mg/dL (7.8-10.44) 03/24/20 00:06 Total Bilirubin 1.1 mg/dL (0.2-1.2) 03/24/20 00:06 AST 29 U/L (5-34) 03/24/20 00:06 ALT 23 U/L (8-55) 03/24/20 00:06 Alkaline Phosphatase 60 U/L (40-110) 03/24/20 00:06 Creatine Kinase 233 U/L (30-200) H 03/24/20 08:02 Serum Total Protein 7.3 g/dL (6.0-8.3) 03/24/20 00:06 Albumin 4.4 g/dL (3.5-5.0) 03/24/20 00:06 Lipase 7 U/L (8-78) L 03/24/20 00:06 Urine Ketones Trace mg/dL (Negative) A 03/23/20 21:30 Urine Blood Small (Negative) A 03/23/20 21:30 Urine Nitrite Negative (Negative) 03/23/20 21:30 Ur Leukocyte Esterase Negative (Negative) 03/23/20 21:30 Urine RBC 4-6 HPF (0-3) A 03/23/20 21:30 Urine WBC 0-3 HPF (0-3) 03/23/20 21:30 Ur Squamous Epith Cells 0-3 HPF (0-3) 03/23/20 21:30 Urine Bacteria 2+ HPF (None Seen) A 03/23/20 21:30 Hospitalist H&P A/P - Problem (1) Intractable nausea and vomiting Code(s): R11.2 - NAUSEA WITH VOMITING, UNSPECIFIED Status: Acute (2) MAEVE (acute kidney injury) Code(s): N17.9 - ACUTE KIDNEY FAILURE, UNSPECIFIED Status: Acute (3) Episode of binge consumption of alcohol Code(s): Z78.9 - OTHER SPECIFIED HEALTH STATUS Status: Acute (4) History of cannabis abuse Code(s): F12.11 - CANNABIS ABUSE, IN REMISSION Status: Chronic (5) ADHD Status: Chronic - Plan Plan: Continue IV fluids. Check CK and Mg+ UDS ordered. Significant improvement in renal function, continue to monitor. CT head, given persistent episodes occurring monthly per patient. GI Consult Famotidine 20 mg PO BID DVT Prophylaxis: Mechanical SCDs CODE STATUS FULL
--- NOTE | 2020-03-24 13:35 | CT ---
CT HEAD WITHOUT CONTRAST: Date: 03/24/2020 INDICATION: Nausea and vomiting. Headaches. COMPARISON: 01/13/2016. FINDINGS: Ventricles are normal size and position. There is no evidence of intracranial mass, hemorrhage, edema , or infarct. Paranasal sinuses and mastoids are clear. IMPRESSION: Unremarkable head CT. POS: AGW
[2020-03-24 14:57] LABS: SARS-CoV-2 MS2 Positive; SARS-CoV-2 N Gene Negative; SARS-CoV-2 S Gene Negative; SARS-CoV-2 by NAA Not Detected (NotDetected); SARS-CoV-2 orf1ab Negative
[2020-03-24 15:14] LABS: Amphetamine Not Detected (NotDetected); Barbiturates Screen Not Detected (NotDetected); Benzodiazepine Screen Not Detected (NotDetected); Cocaine Metabolite Screen Not Detected (NotDetected); Medtox Control Line Valid? VALID (VALID); Medtox Reader # READER 4; Methadone Not Detected (NotDetected); Methamphetamine Not Detected (NotDetected); Opiate Screen Not Detected (NotDetected); Oxycodone Screen Not Detected (NotDetected); Phencyclidine (PCP) Not Detected (NotDetected); THC/Cannabinoid Screen Not Detected (NotDetected); Tricyclic Screen Not Detected (NotDetected)
--- NOTE | 2020-03-24 16:11 | PDOC.DS.DS ---
Provider - Provider Date of Admission: 03/24/20 00:53 Date of Discharge: 03/24/20 Admitting Provider: Rani Murphy MD Consultations: None Primary Care Physician: NO PCP PROVIDER Course - Hospital Course Hospital Course: Patient admitted with nausea/vomiting believed to be associated with cannabis use. Patient states he has not smoked marijuana for 2 months. Has had these episodes monthly for the last several months. Admits to binge drinking last night until 3am with vomiting starting at 7am. Previous episodes were not associated with alcohol consumption. He had an MAEVE at presentation and renal function improved significantly on day of discharge. He received IV fluids. He was able to tolerate a regular diet without any further vomiting. Did not have any abdominal pain throughout his stay. Remained afebrile. Has not bowel changes. No complaints at present and eager for discharge home. Pertinent Studies: Chest xray was negative for acute changes. CT head was unremarkable. Resuscitation Status: 03/24/20 07:48 Resuscitation Status Routine Co-Sign Provider: Resuscitation Status: FULL: Full Resuscitation - Labs Lab Results: 03/24/20 00:06 03/24/20 00:06 Abnormal Lab Results - Last 48 hrs 03/23/20 21:30: Urine Protein 100 A, Urine Ketones Trace A, Urine Blood Small A, Urine Bilirubin Moderate A, Urine RBC 4-6 A, Ur Renal Epithelial Cell 0-3 A, Urine Bacteria 2+ A, Hyaline Casts Greater than 50 A 03/23/20 21:36: WBC 22.2 H, Neutrophils % (Manual) 85 H, Lymphocytes % (Manual) 6 L 03/23/20 21:36: Chloride 97 L, Carbon Dioxide 19 L, Anion Gap 29 H, BUN 22 H, Creatinine 1.68 H, Calcium 10.8 H, Total Bilirubin 1.5 H, AST 43 H, Serum Total Protein 9.8 H, Albumin 5.7 H, Globulin 4.1 H 03/23/20 21:36: Lactic Acid 2.9 H 03/24/20 00:06: Carbon Dioxide 18 L, BUN 22 H, Lipase 7 L 03/24/20 00:06: WBC 16.4 H, RBC 4.36 L, Hgb 13.0 L, Hct 38.6 L, Neutrophils % 90.7 H, Lymphocytes % 5.9 L, Neutrophils # 14.9 H, Lymphocytes # 1.0 L 03/24/20 08:02: Creatine Kinase 233 H Microbiology - Entire Visit 03/23/20 21:36 Venous blood - Left Arm Blood Culture - Preliminary Specimen has been received and culture in progress. No Growth to date. 03/23/20 21:36 Venous blood - Left Hand Blood Culture - Preliminary Specimen has been received and culture in progress. No Growth to date. - Physical Exam Vitals: Vital Signs (12 hours) Temp Pulse Resp BP BP Pulse Ox 03/24/20 08:00 98.2 F 68 16 123/72 96 03/24/20 07:48 97.8 F 68 16 123/72 96 Weight Weight 110 lb Physical Exam: The patient was seen and examined on the day of discharge. Problem - Discharge Plan Assessment: Patient with n/v which has resolved. Likely associated with heavy alcohol consumption yesterday evening. Possible underlying gastritis and would benefit from outpatient GI evaluation, given recurring episodes on a monthly basis per patient. No indication for abdominal imaging at present as no abdominal pain and LFTs normal. Has had CT imaging in the recent past which was unremarkable. Plan of Treatment: Advised to continue Pepcid 20 mg PO daily for possible gastritis. Avoid alcohol intake. Follow-up with PCP to discuss Outpatient GI Referral. Return to ED if any worsening or new concerning symptoms as discussed. - Problem (1) Intractable nausea and vomiting Code(s): R11.2 - NAUSEA WITH VOMITING, UNSPECIFIED Status: Resolved (2) MAEVE (acute kidney injury) Code(s): N17.9 - ACUTE KIDNEY FAILURE, UNSPECIFIED Status: Resolved (3) Episode of binge consumption of alcohol Code(s): Z78.9 - OTHER SPECIFIED HEALTH STATUS Status: Acute (4) History of cannabis abuse Code(s): F12.11 - CANNABIS ABUSE, IN REMISSION Status: Chronic (5) ADHD Status: Chronic Plan - Discharge Medications Prescriptions: Famotidine [Pepcid] 20 mg PO DAILY #14 tab Home Medications: Medication Instructions Recorded Confirmed Type Ondansetron [Zofran ODT] 4 mg PO Q6H PRN #20 tab 12/13/19 03/24/20 Rx Famotidine [Pepcid] 20 mg PO DAILY #14 tab 03/24/20 Rx Allergies: No Known Drug Allergies Allergy (Verified 12/11/19 22:56) PER ER NOTES - Discharge Instructions Discharge Instructions:: Please follow-up with your primary care physician within a week to discuss outpatient GI referral. Return to ED if recurring/worsening symptoms. Avoid alcohol intake. Continue Pepcid as prescribed. Activity:: Activity as Tolerated Nourishment:: Regular Diet - Follow up Plan Referrals: Shaila Cerda NP [[facility]] - 03/28/20 1:30 pm (Please remember to bring all medication bottles to clinic and all hospital discharge paperwork. ) Disposition: HOME
[2020-03-24 16:45] VITALS: BP 115/75; TEMP 98.1
== END 2020-03-24 17:34 | disposition home or self-care (01) ==
LOC: ERS 21:16 → T4-A 03-24 00:53
PROVIDERS: ADMIT Internal Medicine; ATTEND Internal Medicine
DX: R11.2 Nausea with vomiting, unspecified (principal); N17.9 Acute kidney failure, unspecified; F12.11 Cannabis abuse, in remission; F90.9 Attention-deficit hyperactivity disorder, unspecified type; F17.210 Nicotine dependence, cigarettes, uncomplicated; D72.829 Elevated white blood cell count, unspecified; E87.2 Acidosis; Z20.828 Contact with and (suspected) exposure to other viral communicable diseases
CPT/HCPCS: 36415; 70450; 71045; 80053; 80306; 81003; 81015; 82550; 83605; 83690; 83735; 85025; 87040; 87635; 93005; 96365; 96375; 96376; G0378; J0696; J1200; J2405; U0003

== ENCOUNTER 2021-03-16 09:08 | Observation (INO) | payer BC, SELFPAY ==
[2021-03-16] MEDS ORDERED: Ketorolac Tromethamine 30 MG/ML VIAL ONE (09:11)
[2021-03-16 09:38] LABS: #Basophils 0.1 thou/uL (0.0-0.2); #Lymphocytes 2.3 thou/uL (1.20-3.40); #Monocytes 1.3 thou/uL (0.11-0.59); #Neutrophils 13.2 thou/uL (1.40-6.50); %Basophils 0.4 % (0.0-1.0); %Eosinophils 0.1 % (0.0-10.0); %Lymphocytes 13.7 % (21.0-51.0); %Monocytes 7.7 % (0.0-10.0); Hemoglobin 14.9 g/dL (14.0-18.0); Mean Corpuscular HGB CONC 32.8 g/dL (32.0-36.0); Mean Corpuscular Hemoglobin 28.6 pg (27.0-31.0); Mean Corpuscular Volume 87.2 fL (78.0-98.0); Mean Platelet Volume 8.3 fL (7.4-10.4); Platelet Count 308 thou/uL (130-400); RBC Distribution Width 11.9 % (11.5-14.5); Red Blood Cell (RBC) Count 5.22 mill/uL (4.70-6.10); White Blood Cell (WBC) Count 16.9 thou/uL (4.8-10.8)
[2021-03-16 10:26] LABS: ALT (SGPT) 17 U/L (8-55); AST (SGOT) 13 U/L (5-34); Albumin 4.9 g/dL (3.5-5.0); Alkaline Phosphatase 67 U/L (40-110); Anion Gap 24 mmol/L (10-20); BUN (Urea Nitrogen) 43 mg/dL (8.9-20.6); Bilirubin, Total 0.6 mg/dL (0.2-1.2); CK (CPK) 119 U/L (30-200); Calc. Creatinine Clearance 0 mL/min (70-130); Calcium 10.2 mg/dL (7.8-10.44); Carbon Dioxide 22 mmol/L (22-29); Chloride 94 mmol/L (98-107); Globulin 3.9 g/dL (2.4-3.5); Glucose 112 mg/dL (70-105); Lipase 15 U/L (8-78); Potassium 4.6 mmol/L (3.5-5.1); Protein, Total 8.8 g/dL (6.0-8.3); Sodium 135 mmol/L (136-145)
[2021-03-16] MEDS ORDERED: Acetaminophen 325 MG TAB PO PRN (12:18)
[2021-03-16] MEDS ORDERED: Ondansetron PF 4 MG/2 ML Vial IVP PRN (12:18)
[2021-03-16 13:04] LABS: Hep B Surf Ag Non-Reactive S/CO (NonReactive)
[2021-03-16 13:05] LABS: HBSAg Index 0.24 S/CO (0-0.99); Hep C IgG Ab Non-Reactive (NonReactive); Hep C Index 0.18 S/CO (0-0.79)
[2021-03-16 13:06] LABS: Hep A IgM AB Non-Reactive (NonReactive)
[2021-03-16 13:07] LABS: Hep A IgM S/CO 0.17 S/CO (0-0.79)
[2021-03-16 13:08] LABS: HBCM Index 0.11 S/CO (0-0.79); Hepatitis B Core IgM Abs Non-Reactive (NonReactive)
[2021-03-16 13:14] LABS: Amphetamine Not Detected (NotDetected); Barbiturates Screen Not Detected (NotDetected); Benzodiazepine Screen Not Detected (NotDetected); Cocaine Metabolite Screen Not Detected (NotDetected); Methadone Not Detected (NotDetected); Methamphetamine Not Detected (NotDetected); Opiate Screen Not Detected (NotDetected); Oxycodone Screen Not Detected (NotDetected); Phencyclidine (PCP) Not Detected (NotDetected); THC/Cannabinoid Screen Not Detected (NotDetected); Tricyclic Screen Not Detected (NotDetected)
[2021-03-16 13:15] LABS: Syphilis Antibody Index 21.75 S/CO (<1.00 Non-Reactive)
[2021-03-16 13:16] LABS: HIV (1/2) Antibody/Antigen Non-Reactive (NonReactive); HIV 1/2 INDEX 0.24 S/CO (<1.00)
[2021-03-16 13:45] VITALS: BMI 18.8
[2021-03-16] MEDS: Lactated Ringer's 1,000 ML IV SCH ×2 (14:08→20:52)
[2021-03-16] MEDS ORDERED: FLU VACC QS2021-22(6MOS UP)/PF 60 MCG/0.5 ML SYRINGE IM ONE (14:45)
[2021-03-16 19:00] LABS: Anion Gap 15 mmol/L (10-20); BUN (Urea Nitrogen) 31 mg/dL (8.9-20.6); Calc. Creatinine Clearance 62 mL/min (70-130); Calcium 9.4 mg/dL (7.8-10.44); Carbon Dioxide 27 mmol/L (22-29); Chloride 99 mmol/L (98-107); Glucose 90 mg/dL (70-105); Sodium 137 mmol/L (136-145)
[2021-03-16 20:02] LABS: Syphilis Antibody REACTIVE (Nonreactive)
[2021-03-16] MEDS: Capsaicin 0.025% Cream 60 gm Tube TOP SCH (21:37)
[2021-03-16 22:40] LABS: SARS-CoV-2 PCR by NAA Not Detected (NotDetected)
[2021-03-17] MEDS: Lactated Ringer's 1,000 ML IV SCH ×3 (04:16→14:41)
[2021-03-17 06:24] LABS: #Basophils 0.1 thou/uL (0.0-0.2); #Lymphocytes 2.8 thou/uL (1.20-3.40); #Monocytes 1.3 thou/uL (0.11-0.59); #Neutrophils 12.8 thou/uL (1.40-6.50); %Basophils 0.4 % (0.0-1.0); %Eosinophils 0.2 % (0.0-10.0); %Lymphocytes 16.6 % (21.0-51.0); %Monocytes 7.5 % (0.0-10.0); %Neutrophils 75.3 % (42.0-75.0); Hemoglobin 12.8 g/dL (14.0-18.0); Mean Corpuscular HGB CONC 33.6 g/dL (32.0-36.0); Mean Corpuscular Hemoglobin 29.9 pg (27.0-31.0); Mean Corpuscular Volume 88.9 fL (78.0-98.0); Platelet Count 262 thou/uL (130-400); RBC Distribution Width 11.8 % (11.5-14.5); Red Blood Cell (RBC) Count 4.29 mill/uL (4.70-6.10)
[2021-03-17 06:51] LABS: Anion Gap 13 mmol/L (10-20); BUN (Urea Nitrogen) 22 mg/dL (8.9-20.6); Calc. Creatinine Clearance 88 mL/min (70-130); Calcium 9.6 mg/dL (7.8-10.44); Carbon Dioxide 26 mmol/L (22-29); Chloride 104 mmol/L (98-107); Glucose 113 mg/dL (70-105); Potassium 4.5 mmol/L (3.5-5.1); Sodium 138 mmol/L (136-145)
[2021-03-17] MEDS ORDERED: Promethazine 25 MG TAB PO PRN (08:52)
[2021-03-17] MEDS: Capsaicin 0.025% Cream 60 gm Tube TOP SCH ×2 (08:56→15:30)
[2021-03-17 15:10] VITALS: BP 152/94; TEMP 97.3
== END 2021-03-17 16:30 | disposition home or self-care (01) ==
LOC: ERS 09:08 → T4-B 11:03
PROVIDERS: ADMIT Family Medicine; ATTEND Family Medicine
DX: R11.2 Nausea with vomiting, unspecified (principal); N17.9 Acute kidney failure, unspecified; D72.829 Elevated white blood cell count, unspecified; F90.9 Attention-deficit hyperactivity disorder, unspecified type; R01.1 Cardiac murmur, unspecified; R25.2 Cramp and spasm; F17.210 Nicotine dependence, cigarettes, uncomplicated; F17.290 Nicotine dependence, other tobacco product, uncomplicated; Z20.822 Contact with and (suspected) exposure to COVID-19
CPT/HCPCS: 36415; 76705; 80048; 80053; 80074; 80306; 82550; 83690; 85025; 86593; 86780; 87389; 93005; 96374; 96375; G0378; J1885; J2405; J7120; Q0169; U0003; U0005

== ENCOUNTER 2021-06-11 09:26 | Observation (INO) | payer BC, SELFPAY ==
[2021-06-11] MEDS ORDERED: Ondansetron PF 4 MG/2 ML Vial ONE (10:23)
[2021-06-11 10:34] LABS: #Lymphocytes 1.4 thou/uL (1.20-3.40); #Monocytes 0.7 thou/uL (0.11-0.59); %Basophils 0.2 % (0.0-1.0); %Eosinophils 0.1 % (0.0-10.0); %Lymphocytes 8.7 % (21.0-51.0); %Monocytes 4.4 % (0.0-10.0); %Neutrophils 86.7 % (42.0-75.0); Hemoglobin 18.4 g/dL (14.0-18.0); Mean Corpuscular HGB CONC 32.2 g/dL (32.0-36.0); Mean Corpuscular Hemoglobin 28.9 pg (27.0-31.0); Mean Corpuscular Volume 89.9 fL (78.0-98.0); Mean Platelet Volume 8.3 fL (7.4-10.4); Platelet Count 288 thou/uL (130-400); RBC Distribution Width 11.8 % (11.5-14.5); Red Blood Cell (RBC) Count 6.37 mill/uL (4.70-6.10); White Blood Cell (WBC) Count 16.2 thou/uL (4.8-10.8)
[2021-06-11 10:58] LABS: ALT (SGPT) 12 U/L (8-55); AST (SGOT) 12 U/L (5-34); Albumin 5.8 g/dL (3.5-5.0); Alkaline Phosphatase 90 U/L (40-110); Anion Gap 24 mmol/L (10-20); BUN (Urea Nitrogen) 20 mg/dL (8.9-20.6); Bilirubin, Total 0.7 mg/dL (0.2-1.2); Calc. Creatinine Clearance 0 mL/min (70-130); Calcium 11.1 mg/dL (7.8-10.44); Carbon Dioxide 21 mmol/L (22-29); Chloride 97 mmol/L (98-107); Globulin 4.8 g/dL (2.4-3.5); Glucose 205 mg/dL (70-105); Lipase 9 U/L (8-78); Potassium 4.3 mmol/L (3.5-5.1); Protein, Total 10.6 g/dL (6.0-8.3); Sodium 138 mmol/L (136-145)
[2021-06-11] MEDS ORDERED: Iopamidol 370 76% 100 ML VIAL ONE (10:58)
[2021-06-11 11:23] LABS: Bilirubin Moderate (Negative); Blood, Urine Negative (Negative); Glucose, Urine (Dipstick) 100 mg/dL (Negative); Ketone, Urine Trace mg/dL (Negative); Leukocyte Negative (Negative); Nitrite Positive (Negative); Protein, Urine (Dipstick) > or equal to 300 mg/dL (Neg-Trace); Urobilinogen 0.2 mg/dL (Less than 2)
[2021-06-11 11:27] LABS: Clarity Clear (Clear); Specific Gravity, Urine 1.029 (1.002-1.036)
[2021-06-11 11:29] LABS: Bacteria/HPF 1+ HPF (None Seen); RBC/HPF 0-3 HPF (0-3); Squamous Epithelial 0-3 HPF (0-3); WBC/HPF 0-3 HPF (0-3)
[2021-06-11 11:46] LABS: Actual Bicarbonate (HCO3v) 18 mEq/L (22-28); Analyzer IN Cardio ER; Chloride (VBG) 101 mmol/L (98-106); Hemoglobin (Hb) 17.9 g/dL (13.2-17.3); Potassium (VBG) 4.19 mmol/L (3.70-5.30); Sodium 138.3 mmol/L (133-146)
[2021-06-11 12:21] LABS: Acetaminophen Less than 6.0 mcg/mL (10.0-30.0); Alcohol Less than 10 mg/dL (Less than 10); Salicylate Less than 8.0 mg/dL (15.0-30.0)
[2021-06-11] MEDS ORDERED: Cefepime 2 GM VIAL ONE (13:02)
[2021-06-11 13:38] LABS: Amphetamine Not Detected (NotDetected); Barbiturates Screen Not Detected (NotDetected); Benzodiazepine Screen Not Detected (NotDetected); Cocaine Metabolite Screen Not Detected (NotDetected); Methadone Not Detected (NotDetected); Methamphetamine Detected (NotDetected); Opiate Screen Not Detected (NotDetected); Oxycodone Screen Not Detected (NotDetected); Phencyclidine (PCP) Not Detected (NotDetected); THC/Cannabinoid Screen Not Detected (NotDetected); Tricyclic Screen Not Detected (NotDetected)
[2021-06-11] MEDS ORDERED: Acetaminophen 650 MG Suppository PR PRN (14:09)
[2021-06-11] MEDS ORDERED: Ondansetron PF 4 MG/2 ML Vial IVP PRN ×2 (14:09→14:19)
[2021-06-11] MEDS ORDERED: Acetaminophen 325 MG TAB PO PRN (14:09)
[2021-06-11] MEDS ORDERED: Ondansetron ODT 4 MG TAB PO PRN (14:09)
[2021-06-11] MEDS ORDERED: Electrolyte Replacement Protocol 1 EACH FS PRN (14:15)
[2021-06-11] MEDS ORDERED: hydrALAZINE 20 MG/ML VIAL SLOW IVP PRN (14:15)
[2021-06-11 14:17] LABS: HIV (1/2) Antibody/Antigen Non-Reactive (NonReactive); HIV 1/2 INDEX 0.12 S/CO (<1.00)
[2021-06-11] MEDS ORDERED: Promethazine HCl 25 MG in Sodium Chloride 0.9% 50 ML IVPB PRN (14:19)
[2021-06-11 15:11] LABS: Lactic Acid 5.3 mmol/L (0.5-2.2)
[2021-06-11 16:12] VITALS: BMI 18.9
[2021-06-11] MEDS: Lactated Ringer's 1,000 ML IV SCH ×2 (17:28→17:31)
[2021-06-11] MEDS: Pantoprazole 40 MG VIAL IVP SCH (19:45)
[2021-06-12] MEDS: Lactated Ringer's 1,000 ML IV SCH ×4 (00:05→20:59)
[2021-06-12] MEDS ORDERED: Cefepime 2 GM in Sodium Chloride 0.9% 100 ML IVPB SCH (01:00)
[2021-06-12 04:33] LABS: #Basophils 0.1 thou/uL (0.0-0.2); #Lymphocytes 4.2 thou/uL (1.20-3.40); #Monocytes 1.3 thou/uL (0.11-0.59); #Neutrophils 7.4 thou/uL (1.40-6.50); %Basophils 0.4 % (0.0-1.0); %Eosinophils 0.1 % (0.0-10.0); %Lymphocytes 32.5 % (21.0-51.0); %Monocytes 10.3 % (0.0-10.0); %Neutrophils 56.7 % (42.0-75.0); Hemoglobin 13.6 g/dL (14.0-18.0); Mean Corpuscular HGB CONC 32.2 g/dL (32.0-36.0); Mean Platelet Volume 8.5 fL (7.4-10.4); Platelet Count 219 thou/uL (130-400); RBC Distribution Width 11.4 % (11.5-14.5); Red Blood Cell (RBC) Count 4.67 mill/uL (4.70-6.10)
[2021-06-12 04:38] LABS: Anion Gap 11 mmol/L (10-20); BUN (Urea Nitrogen) 10 mg/dL (8.9-20.6); Calc. Creatinine Clearance 95 mL/min (70-130); Calcium 8.9 mg/dL (7.8-10.44); Carbon Dioxide 26 mmol/L (22-29); Chloride 104 mmol/L (98-107); Glucose 95 mg/dL (70-105); Potassium 3.6 mmol/L (3.5-5.1); Sodium 137 mmol/L (136-145)
[2021-06-12] MEDS: Cefepime 2 GM in Sodium Chloride 0.9% 100 ML IVPB SCH ×2 (08:26→15:59)
[2021-06-12] MEDS: Pantoprazole 40 MG VIAL IVP SCH ×2 (08:28→20:58)
[2021-06-12 11:10] LABS: Syphilis Antibody REACTIVE (Nonreactive); Syphilis Antibody Index 17.09 S/CO (<1.00 Non-Reactive)
[2021-06-13] MEDS: Cefepime 2 GM in Sodium Chloride 0.9% 100 ML IVPB SCH ×2 (00:10→09:04)
[2021-06-13 06:37] LABS: #Basophils 0.1 thou/uL (0.0-0.2); #Lymphocytes 4.3 thou/uL (1.20-3.40); #Monocytes 0.9 thou/uL (0.11-0.59); #Neutrophils 4.4 thou/uL (1.40-6.50); %Basophils 0.8 % (0.0-1.0); %Eosinophils 0.5 % (0.0-10.0); %Lymphocytes 44.2 % (21.0-51.0); %Monocytes 9.6 % (0.0-10.0); Hemoglobin 14.5 g/dL (14.0-18.0); Mean Corpuscular Volume 90.6 fL (78.0-98.0); Platelet Count 206 thou/uL (130-400); RBC Distribution Width 11.5 % (11.5-14.5); White Blood Cell (WBC) Count 9.8 thou/uL (4.8-10.8)
[2021-06-13] MEDS: Lactated Ringer's 1,000 ML IV SCH ×2 (06:43→09:03)
[2021-06-13 06:58] LABS: Anion Gap 12 mmol/L (10-20); BUN (Urea Nitrogen) 11 mg/dL (8.9-20.6); Calc. Creatinine Clearance 105 mL/min (70-130); Calcium 8.6 mg/dL (7.8-10.44); Carbon Dioxide 25 mmol/L (22-29); Chloride 106 mmol/L (98-107); Glucose 91 mg/dL (70-105); Potassium 3.8 mmol/L (3.5-5.1); Sodium 139 mmol/L (136-145)
[2021-06-13] MEDS: Pantoprazole 40 MG VIAL IVP SCH (09:03)
[2021-06-13 09:29] VITALS: TEMP 98.2
[2021-06-13 13:13] VITALS: BP 143/80
[2021-06-14] MEDS ORDERED: FLU VACC QS2021-22(6MOS UP)/PF 60 MCG/0.5 ML SYRINGE IM ONE (16:45)
== END 2021-06-13 14:18 | disposition home or self-care (01) ==
LOC: ERS 09:26 → T4-A 12:44
PROVIDERS: ADMIT Internal Medicine; ATTEND Internal Medicine
DX: R11.2 Nausea with vomiting, unspecified (principal); E87.2 Acidosis; N17.9 Acute kidney failure, unspecified; D72.829 Elevated white blood cell count, unspecified; F17.210 Nicotine dependence, cigarettes, uncomplicated; F17.290 Nicotine dependence, other tobacco product, uncomplicated; Z91.19 Patient's noncompliance with other medical treatment and regimen
CPT/HCPCS: 36415; 36416; 71045; 74177; 80048; 80053; 80306; 80307; 81003; 81015; 82010; 82805; 83605; 83690; 84145; 84443; 85025; 86593; 86780; 87040; 87389; 93005; 96365; 96366; 96375; 96376; C9113; G0378; J0692; J2405; J3490; J7120; Q9967